=== PATIENT | female | born 2000 | race Caucasian/White ===

== ENCOUNTER 2019-10-31 08:14 | Emergency (ER) | payer OTHER ==
[2019-10-31 09:15] LABS: ABSOLUTE EOSINOPHILS # (AUTO) 0.1 10^3/uL (0.0-0.6); ABSOLUTE LYMPHOCYTES (AUTO) 0.9 10^3/uL (0.5-4.7); ABSOLUTE MONOCYTES (AUTO) 0.5 10^3/uL (0.1-1.4); ABSOLUTE NEUT (AUTO) 3.3 10^3/uL (1.7-8.2); BASOPHILS % (AUTO) 0.4 % (0-2); EOSINOPHILS % (AUTO) 1.2 % (0-6); HEMATOCRIT 40.1 % (36.0-47.0); HEMOGLOBIN 13.6 g/dL (12.0-15.5); LYMPHOCYTES % (AUTO) 19.4 % (13-45); MEAN CORPUSCULAR HGB CONC 33.9 g/dL (32.0-36.0); MEAN CORPUSCULAR VOLUME 86 fl (80-97); MONOCYTES % (AUTO) 10.5 % (3-13); PLATELET COUNT 309 10^3/uL (150-450); RED BLOOD COUNT 4.69 10^6/uL (3.72-5.28); RED CELL DISTRIBUTION WIDTH 14.1 % (11.5-14.0); SEGMENTED NEUTROPHILS % (AUTO) 68.5 % (42-78); TOTAL CELLS COUNTED % (AUTO) 100 %; WHITE BLOOD COUNT 4.9 10^3/uL (4.0-10.5)
[2019-10-31 09:20] LABS: ALBUMIN 4.1 g/dL (3.5-5.0); ALKALINE PHOSPHATASE 64 U/L (38-126); ANION GAP 6 (5-19); ASPARTATE AMINO TRANSFERASE 21 U/L (14-36); BILIRUBIN,TOTAL 0.4 mg/dL (0.2-1.3); BLOOD UREA NITROGEN 8 mg/dL (7-20); CALCIUM 9.3 mg/dL (8.4-10.2); CARBON DIOXIDE 28 mmol/L (22-30); CHLORIDE 103 mmol/L (98-107); GLUCOSE 90 mg/dL (75-110); POTASSIUM 4.3 mmol/L (3.6-5.0)
[2019-10-31 09:21] LABS: APPEARANCE,URINE CLOUDY; BILIRUBIN,URINE NEGATIVE (NEGATIVE); COLOR,URINE YELLOW; GLUCOSE, URINE NEGATIVE (NEGATIVE); KETONES,URINE NEGATIVE (NEGATIVE); LEUKOCYTE ESTERASE,URINE LARGE (NEGATIVE); NITRITE,URINE NEGATIVE (NEGATIVE); PROTEIN,URINE 100 mg/dL (NEGATIVE); URINE SPECIFIC GRAVITY 1.017; UROBILINOGEN,URINE NEGATIVE mg/dL (<2.0)
[2019-10-31] MEDS ORDERED: PHENAZOPYRIDINE HCL 200 MG TABLET PO ONE (10:22)
--- NOTE | 2019-10-31 10:30 | ER Document Report ---
Entered by QUYEN KOHLER SCRIBE 10/31/19 1021 Acting as scribe for:VON HIGGINS MD ED GI/ - General Chief Complaint: Urinary Problem Stated Complaint: BLOOD IN URINE,PAINFUL URINATION Time Seen by Provider: 10/31/19 10:07 Mode of Arrival: Ambulatory Information source: Patient Notes: This 19-year-old female patient presents to the emergency department today with concerns of urinary urgency, urinary frequency, dysuria, and hematuria for the last 2 days. Patient states her last menstrual period was October 12. Patient is G0, P0 and not on control. Patient states there is a chance she could be . Patient denies any fevers or nausea. - Related Data Allergies/Adverse Reactions: No Known Allergies Allergy (Unverified 10/31/19 09:34) Home Medications: off her synthroid Past Medical History - General Information source: Patient Last Menstrual Period: 10/13/2019 - Social History Smoking Status: Never Smoker Cigarette use (# per day): No Chew tobacco use (# tins/day): No Frequency of alcohol use: None Drug Abuse: Marijuana Lives with: Family Family History: Reviewed & Not Pertinent Patient has homicidal ideation: No - Medical History Medical History: Negative Surgical Hx: Negative Review of Systems - Review of Systems Constitutional: denies: Fever EENT: No symptoms reported Cardiovascular: No symptoms reported Respiratory: No symptoms reported Gastrointestinal: denies: Nausea Genitourinary: See HPI, Burning, Dysuria, Frequency, Urgency Female Genitourinary: No symptoms reported Musculoskeletal: No symptoms reported Skin: No symptoms reported Hematologic/Lymphatic: No symptoms reported Neurological/Psychological: No symptoms reported -: Yes All other systems reviewed and negative Physical Exam - Vital signs Vitals: Temp Pulse Resp BP Pulse Ox 98.2 F 104 H 16 125/99 H 99 10/31/19 08:19 10/31/19 08:19 10/31/19 08:19 10/31/19 08:19 10/31/19 08:19 - Notes Notes: Physical Exam: General: Alert, appears well. HEENT: Normocephalic. Atraumatic. PERRL. Extraocular movements intact. Oropharynx clear. Neck: Supple. Non-tender. Respiratory: No respiratory distress. Clear and equal breath sounds bilaterally. Cardiovascular: Regular rate and rhythm. Abdominal: Complains of pressure with palpation over the suprapubic area. No distension. Normal Bowel Sounds. Back: No gross abnormalities. Extremities: Moves all four extremities. Upper extremities: Normal inspection. Normal ROM. Lower extremities: Normal inspection. No edema. Normal ROM. Neurological: Normal cognition. AAOx4. Normal speech. Psychological: Normal affect. Normal Mood. Skin: Warm. Dry. Normal color. Course - Vital Signs Vital signs: Temp Pulse Resp BP Pulse Ox 98.2 F 104 H 16 125/99 H 99 10/31/19 08:19 10/31/19 08:19 10/31/19 08:19 10/31/19 08:19 10/31/19 08:19 - Laboratory Result Diagrams: 10/31/19 08:35 10/31/19 08:35 Laboratory results interpreted by me: 10/31/19 10/31/19 10/31/19 08:35 08:35 08:35 RDW 14.1 H Sodium 136.7 L Urine Protein 100 H Urine Blood LARGE H Ur Leukocyte Esterase LARGE H Discharge - Discharge Clinical Impression: Acute hemorrhagic cystitis, Yeast vaginitis Condition: Stable Disposition: HOME, SELF-CARE Additional Instructions: Urinary Tract Infection Your evaluation indicates that you have a urinary tract infection. This is due to germs growing in the bladder. This is a common problem. This infection usually responds quickly to antibiotics. Your antibiotic should be taken exactly as prescribed. Drink plenty of fluids -- three to four quarts a day. Occasionally, a bladder anesthetic will be prescribed to help stop the feeling of urgency until the antibiotic has a chance to clear the infection. This may cause your urine to be dark orange. Certain urine infections require a culture. If the doctor obtained a culture, the results will be back in two days. You should call to see if a change in treatment is needed. A repeat urinalysis after you finish treatment is often recommended. The physician will let you know if further testing is required. Call the doctor if you develop fever, chills, flank pain, inability to urinate, or blood in the urine. Your urine did show signs of a bladder infection. There was also budding yeast seen which suggest you have a vaginal yeast infection developing. Your prescribed cephalexin antibiotic for the infection, Pyridium a bladder anesthetic, and Monistat 7 vaginal cream to use to prevent the yeast infection from getting worse. Drink plenty of fluids throughout the day in the evening. Follow-up with a local primary care provider if not improving. RETURN TO THE EMERGENCY ROOM IF ANY NEW OR WORSENING SYMPTOMS. Prescriptions: Miconazole Nitrate [Monistat-7 Vaginal Cream 45 Gm Tube] 1 applic PV QHS #1 tube Cephalexin Monohydrate [Keflex 500 mg Capsule] 500 mg PO TID #15 capsule Phenazopyridine HCl [Pyridium 200 mg Tablet] 200 mg PO TID PRN #10 tablet PRN Reason: I personally performed the services described in the documentation, reviewed and edited the documentation which was dictated to the scribe in my presence, and it accurately records my words and actions.
[2019-10-31] MEDS ORDERED: CEPHALEXIN 500 MG CAPSULE PO ONE (10:50)
[2019-10-31 11:08] VITALS: BP 120/67
== END 2019-10-31 11:04 | disposition home or self-care (01) ==
LOC: ER 08:14
DX: N30.01 Acute cystitis with hematuria (principal); B37.3 Candidiasis of vulva and vagina; F12.10 Cannabis abuse, uncomplicated
CPT/HCPCS: 99283; 36415; 85025; 81025; 80053; 81001; J3490

== ENCOUNTER 2020-04-25 08:07 | Emergency (ER) | payer OTHER ==
--- NOTE | 2020-04-25 10:05 | ER Document Report ---
ED ENT - General Chief Complaint: Sore Throat Stated Complaint: SORE THROAT,FEVER Time Seen by Provider: 04/25/20 08:52 - HPI Notes: Patient is a 19-year-old female with a history of a thyroid disorder who presents with sore throat that began 1 day ago. Patient states her pain is worsening and she began to feel febrile this morning. Patient is able to tolerate liquids, solids, and oral secretions without difficulty. She took ibuprofen which provided significant relief. She reports nausea but denies vomiting, diarrhea, cough, shortness of breath, and chest pain. Patient reports a history of strep throat in the past. - Related Data Allergies/Adverse Reactions: No Known Allergies Allergy (Unverified 10/31/19 09:34) Home Medications: THYROID MEDICATION Past Medical History - General Information source: Patient - Social History Smoking Status: Never Smoker Frequency of alcohol use: None Drug Abuse: None Family History: Reviewed & Not Pertinent - Medical History Medical History: Other - thyroid problem, unsure if hypothyroidism or hyperthyroidism Review of Systems - Review of Systems Constitutional: See HPI EENT: See HPI Cardiovascular: No symptoms reported Respiratory: No symptoms reported Gastrointestinal: No symptoms reported Genitourinary: No symptoms reported Female Genitourinary: No symptoms reported Musculoskeletal: No symptoms reported Skin: No symptoms reported Hematologic/Lymphatic: No symptoms reported Neurological/Psychological: No symptoms reported Physical Exam - Vital signs Vitals: Temp Pulse Resp BP Pulse Ox 99.0 F 98 17 126/63 H 98 04/25/20 08:10 04/25/20 08:10 04/25/20 08:10 04/25/20 08:10 04/25/20 08:10 - Notes Notes: PHYSICAL EXAMINATION: VITALS: Vitals reviewed and within normal limits. GENERAL: Well-appearing, well-nourished and in no acute distress. HEAD: Atraumatic, normocephalic. EYES: Pupils equal, round, and reactive to light, extraocular movements intact, sclera anicteric, conjunctiva are normal. ENT: Nares patent. Moist mucous membranes. Oropharynx clear with mild erythema without exudates. NECK: Normal range of motion, supple without lymphadenopathy. LUNGS: Breath sounds clear to auscultation bilaterally and equal. No wheezes, rales, or rhonchi. HEART: Regular, rate, and rhythm without murmurs. PSYCH: Normal mood, normal affect. SKIN: Warm, Dry, normal turgor, no rashes or lesions noted. Course - Re-evaluation Re-evalutation: Presentation of several days of sore throat in an otherwise well-appearing patient. Rapid strep is negative. History and exam are not consistent with a retropharyngeal abscess or peritonsillar abscess. Airway is patent. No difficulty handling oral secretions. Vitals within normal limits. Patient was advised on symptomatic care. Suspect likely viral pharyngitis. At this time will discharge with return precautions and follow-up recommendations. Verbal discharge instructions given a the bedside and opportunity for questions given. Medication warnings reviewed. Patient is in agreement with this plan and has verbalized understanding of return precautions and the need for primary care follow-up in the next 24-72 hours. - Vital Signs Vital signs: Temp Pulse Resp BP Pulse Ox 99.0 F 98 17 126/63 H 98 04/25/20 08:10 04/25/20 08:10 04/25/20 08:10 04/25/20 08:10 04/25/20 08:10 - Laboratory Results Critical Laboratory Results Reviewed: No Critical Results - Radiology Results Critical Radiology Results Reviewed: No Critical Results Discharge - Discharge Clinical Impression: Sore throat Condition: Stable Disposition: HOME, SELF-CARE Instructions: Sore Throat ([facility]), COVID-19 Guidance for Persons Under Investigation Forms: Return to Work Referrals: YUNIEL BRIDGES MD [ACTIVE STAFF] - Follow up as needed
[2020-04-25 10:09] VITALS: BP 112/56
== END 2020-04-25 10:09 | disposition home or self-care (01) ==
LOC: ER 08:07
DX: J02.9 Acute pharyngitis, unspecified (principal); R50.9 Fever, unspecified; Z20.822 Contact with and (suspected) exposure to COVID-19
CPT/HCPCS: 99283; 87070; 87880; 87635; C9803